=== PATIENT | female | born 2000 | race Caucasian/White ===

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

== ENCOUNTER 2019-01-07 23:37 | Emergency (ER) | payer OTHER ==
[~2019-01-07] VITALS: Ht 157.5 cm; Wt 74.1 kg
[2019-01-07] MEDS ORDERED: BENZ5LIQ14 (23:50)
[2019-01-07] MEDS ORDERED: [UNRECOGNIZED DRUG - CODE] (23:50)
[2019-01-08 01:00] LABS: INFLUENZA A AMPLIFICATION NEGATIVE (NEGATIVE); INFLUENZA B AMPLIFICATION NEGATIVE (NEGATIVE)
[2019-01-08] MEDS ORDERED: PROAAER10 INH (01:41)
[2019-01-08] MEDS ORDERED: TESS100C PO (01:41)
[2019-01-08] MEDS ORDERED: BENZONATATE 100 MG CAP PO ONE (01:45)
[2019-01-08 01:57] VITALS: BP 124/66
--- NOTE | 2019-01-09 09:09 | REP ---
PA and lateral chest: There are no comparisons. The the lung bernstein are clear. The cardiac size is normal. The indra, mediastinum, and skeletal structures are unremarkable. Impression: Negative PA and lateral chest. Electronically Signed by Koffi Nixon MD 01/08/2019 08:18 A
== END 2019-01-08 02:01 | disposition home or self-care (01) ==
LOC: M ED 23:37
DX: J20.9 Acute bronchitis, unspecified (principal); B34.9 Viral infection, unspecified; Z88.8 Allergy status to other drugs, medicaments and biological substances; Z79.899 Other long term (current) drug therapy

== ENCOUNTER 2019-02-17 12:49 | Emergency (ER) | payer OTHER ==
[~2019-02-17] VITALS: Ht 157.5 cm; Wt 72.3 kg
[~2019-02-17 12:49] MED LIST: BENZ5LIQ14; PROAAER10 INH; TESS100C PO; [UNRECOGNIZED DRUG - CODE]
[2019-02-17 15:11] LABS: BASO % 0.3 % (0.0-1.0); EOS # 0.1 10^3/uL (0.0-0.50); EOS % 0.8 % (0.0-3.0); HEMATOCRIT 42.8 % (36.0-47.0); HEMOGLOBIN 14.1 g/dl (12.0-15.5); LYMPH # 2.8 10^3/uL (1.5-6.5); MEAN CORPUSCULAR HEMOGLOBIN 27.5 pg (27.0-33.0); MEAN CORPUSCULAR HGB CONC 32.9 g/dl (32.0-36.5); MEAN CORPUSCULAR VOLUME 83.6 fl (80.0-96.0); MONO # 0.7 10^3/uL (0.0-0.8); MONO % 4.9 % (0.0-5.0); NEUTROPHILS # 10.4 10^3/uL (1.8-7.7); NEUTROPHILS % 73.6 % (36.0-66.0); PLATELET COUNT, AUTOMATED 224 10^3/uL (150-450); RED BLOOD COUNT 5.12 10^6/uL (4.00-5.40); WHITE BLOOD COUNT 14.2 10^3/uL (4.0-10.0)
[2019-02-17 15:38] LABS: ERYTHROCYTE SEDIMENTATION RATE 13 mm/hr (0-20)
[2019-02-17 15:42] LABS: BLOOD UREA NITROGEN 11 MG/DL (7-18); C REACTIVE PROTEIN QUANTITATIV 0.52 MG/DL (0.00-0.30); CARBON DIOXIDE LEVEL 27 MEQ/L (21-32); CHLORIDE LEVEL 107 MEQ/L (98-107); CREATININE FOR GFR 0.84 MG/DL (0.55-1.30); GLUCOSE, FASTING 78 MG/DL (70-100); POTASSIUM SERUM 4.1 MEQ/L (3.5-5.1); SODIUM LEVEL 141 MEQ/L (136-145)
[2019-02-17] MEDS ORDERED: LIDOCAINE 1% SDV 5 ML VIAL DILUENT ONE (16:30)
[2019-02-17] MEDS ORDERED: cefTRIAXone SOD 1 GM VIAL (J0696) IM ONE (16:30)
[2019-02-17 16:57] VITALS: BP 120/69
== END 2019-02-17 17:00 | disposition home or self-care (01) ==
LOC: M ED 12:49
DX: L03.116 Cellulitis of left lower limb (principal); Z88.8 Allergy status to other drugs, medicaments and biological substances
CPT/HCPCS: 36415; 80048; 85025; 85652; 86140; 87040; 96372; 99283; J0696

== ENCOUNTER → 2019-09-15 | Outpatient (REF) | payer OTHER | LOC: M SFHCLERA 14:07 | PROVIDERS: ATTEND Nurse Practitioner Family | DX: J02.9 Acute pharyngitis, unspecified (principal) ==